=== PATIENT | female | born 1950 | race Caucasian/White ===

== ENCOUNTER 2018-02-16 12:24 | Outpatient (CLI) | payer MEDICARE, SELFPAY ==
[2018-02-16 13:24] LABS: ALT 21 U/L (12-78); AST 15 U/L (15-37); Albumin 3.9 g/dL (3.4-5.0); Alkaline Phosphatase 111 U/L (46-116); Anion Gap 8.3 mmol/L (3-11); BUN 17 mg/dL (7-18); Bilirubin, Total 0.4 mg/dL (0.2-1.0); CO2 30.7 mmol/L (21.0-32.0); CREATININE 0.59 mg/dL (0.55-1.02); Calcium 9.2 mg/dL (8.5-10.1); Chloride 105 mmol/L (98-107); Glucose 80 mg/dL (70-100); Potassium 4.5 mmol/L (3.5-5.1); Sodium 144 mmol/L (136-145)
== END 2018-02-16 12:25 ==
DX: M06.9 Rheumatoid arthritis, unspecified (principal); M21.949 Unspecified acquired deformity of hand, unspecified hand; M21.969 Unspecified acquired deformity of unspecified lower leg; M25.561 Pain in right knee
CPT/HCPCS: 36415; 80053

== ENCOUNTER 2018-02-21 01:51 | Outpatient (CLI) | payer MEDICARE, SELFPAY ==
--- NOTE | 2018-02-21 11:50 | DI.REPORT_ITS ---
SYMPTOMS/DIAGNOSIS: SCREENING, Z12.31 MAMMOGRAM: Mammograms were interpreted according to the usual protocol including computer analysis with CAD system, tomosynthesis and C view imaging. Comparison is made with exams from 2009 through 2016. The breasts are composed of scattered fibroglandular densities, breast density Category B. There are no suspicious masses or suspicious microcalcifications. There has been no significant change. IMPRESSION: Category I B, negative mammogram. Routine screening is recommended. [facility] ASSESSMENT OF FINDINGS: Negative. Category 1. Patient will receive a letter notifying them of these results. BI-RADS category B. There are scattered areas of fibroglandular density.
== END 2018-02-21 01:52 ==
DX: Z12.31 Encounter for screening mammogram for malignant neoplasm of breast (principal)
CPT/HCPCS: 77063; 77067

== ENCOUNTER 2019-02-22 10:08 | Outpatient (CLI) | payer MEDICARE, SELFPAY ==
[2019-02-22 13:09] LABS: ALT 21 U/L (12-78); AST 14 U/L (15-37); Albumin 3.5 g/dL (3.4-5.0); Alkaline Phosphatase 100 U/L (46-116); Anion Gap 9.1 mmol/L (3-11); BUN 18 mg/dL (7-18); Bilirubin, Total 0.3 mg/dL (0.2-1.0); CO2 29.9 mmol/L (21.0-32.0); CREATININE 0.56 mg/dL (0.55-1.02); Calcium 9.1 mg/dL (8.5-10.1); Chloride 106 mmol/L (98-107); Glucose 87 mg/dL (70-100); Potassium 4.9 mmol/L (3.5-5.1); Sodium 145 mmol/L (136-145)
== END 2019-02-22 10:28 ==
DX: M06.9 Rheumatoid arthritis, unspecified (principal)
CPT/HCPCS: 36415; 80053

== ENCOUNTER 2020-03-06 17:16 | Outpatient (REF) | payer MEDICARE, SELFPAY ==
[2020-03-06 16:53] LABS: ALT 20 U/L (14-59); AST 16 U/L (15-37); Albumin 3.4 g/dL (3.4-5.0); Alkaline Phosphatase 95 U/L (46-116); Anion Gap 4.5 mmol/L (3-11); BUN 14 mg/dL (7-18); Bilirubin, Total 0.3 mg/dL (0.2-1.0); CO2 30.5 mmol/L (21.0-32.0); CREATININE 0.48 mg/dL (0.55-1.02); Calcium 8.6 mg/dL (8.5-10.1); Chloride 110 mmol/L (98-107); Cholesterol 189 mg/dL (<200); Glucose 88 mg/dL (74-106); HDL Cholesterol 84 mg/dL (40-60); Potassium 4.3 mmol/L (3.5-5.1); Sodium 145 mmol/L (136-145); Total Protein 6.6 g/dL (6.4-8.2)
[2020-03-06 16:54] LABS: Triglyceride < 25 mg/dL (<150)
[2020-03-06 17:26] LABS: LDL CHOLESTEROL 94 mg/dL (<100)
== END 2020-03-06 17:36 ==
LOC: LBN 17:16
DX: E03.9 Hypothyroidism, unspecified (principal); L84 Corns and callosities; M06.9 Rheumatoid arthritis, unspecified; M21.969 Unspecified acquired deformity of unspecified lower leg; Z13.220 Encounter for screening for lipoid disorders
CPT/HCPCS: 80053; 80061; 83721

== ENCOUNTER 2020-03-14 04:04 | Outpatient (CLI) | payer MEDICARE, SELFPAY ==
--- NOTE | 2020-03-14 08:45 | DI.MAMMO_ITS ---
EXAM: MAMMO SCREENING CLINICAL HISTORY: screening,Z12.39 TECHNIQUE: Mammograms were interpreted according to the usual protocol including computer analysis w [employer] CAD system, tomosynthesis and C-view imaging. COMPARISON: 2010 through 2017 FINDINGS: The breasts are composed of heterogeneously dense fibroglandular densities, Breast Density category C . No suspicious masses or suspicious microcalcifications are seen. No skin thickening or abnormal axillary lymph nodes are seen. There has been no significant change from prior exams. IMPRESSION: BI-RADS Category 1: Negative mammogram Yearly screening mammography is recommended. Breast Density - Category C, heterogeneously dense tissue which decreases the sensitivity of the mamm ogram. The mammogram demonstrates the patient's breast tissue is dense. Dense breast tissue is very common a nd is not abnormal but dense breast tissue can make it harder to find cancer on a mammogram. Also, de nse breast tissue may increase breast cancer risk. This information about the result of the mammogram report was provided to the patient to raise their awareness. Use this report when you speak with the patient about their risks for breast cancer, which includes their family history. At that time, you may recommend additional screening tests (Ultrasound or MRI) as they might be useful based on their r isk. A negative radiographic report should not delay biopsy if a dominant or clinically suspicious mass is present. Up to ten percent of cancers are not identified on mammography. A negative report may reinforce clinical impression. Adenosis and dense breasts may obscure an underlying neoplasm. False positive reports average 6 to 10%.
== END 2020-03-14 04:24 ==
DX: Z12.31 Encounter for screening mammogram for malignant neoplasm of breast (principal); R92.2 Inconclusive mammogram
CPT/HCPCS: 77063; 77067

== ENCOUNTER 2021-03-19 03:06 | Outpatient (CLI) | payer MEDICARE, SELFPAY ==
[2021-03-19 10:26] LABS: ALT 22 U/L (14-59); AST 19 U/L (15-37); Albumin 3.5 g/dL (3.4-5.0); Alkaline Phosphatase 99 U/L (46-116); Anion Gap 4.7 mmol/L (3-11); BUN 19 mg/dL (7-18); Bilirubin, Total 0.4 mg/dL (0.2-1.0); CO2 31.3 mmol/L (21.0-32.0); CREATININE 0.6 mg/dL (0.55-1.02); Calcium 8.9 mg/dL (8.5-10.1); Chloride 109 mmol/L (98-107); Glucose 87 mg/dL (74-106); Potassium 5.5 mmol/L (3.5-5.1); Sodium 145 mmol/L (136-145); Total Protein 6.7 g/dL (6.4-8.2)
== END 2021-03-19 03:07 | disposition home or self-care (01) ==
LOC: LBO 03:06
DX: M06.9 Rheumatoid arthritis, unspecified (principal)
CPT/HCPCS: 36415; 80053

== ENCOUNTER 2022-03-22 13:10 | Outpatient (CLI) | payer MEDICARE, SELFPAY ==
--- NOTE | 2022-03-22 11:15 | DI.RAD_ITS ---
Exam(s) XR STANDING ALIGNMENT XR KNEE RT 1V EXAM: XR STANDING ALIGNMENT CLINICAL HISTORY: preop. TECHNIQUE: 2D digital imaging was performed. Standing AP views were performed from the pelvis throu gh the ankles. Single lateral view of the right knee COMPARISON: CR XR KNEE RT 1V from 03/22/2022 FINDINGS: BONES: No acute fracture is present. No bony destructive lesion is seen. The left femoral head projec ts 14 millimeters superior to the right. JOINTS: Knees: Severe degenerative changes of the right knee, greater in the lateral femoral tibial j oint space and prominent periarticular spurring. There is valgus angulation. Mild degenerative figueroa ges left knee. The ankle joints show mild narrowing. The hip joints are unremarkable. SOFT TISSUE: Normal. IMPRESSION: Severe degenerative changes of the right knee. Leg length discrepancy. DATA REPOSITORY: RADIATION DOSE DELIVERED:
== END 2022-03-22 13:11 | disposition home or self-care (01) ==
LOC: DIORS 13:10
PROVIDERS: Visit Provider Physician Assistant Surgical
DX: M17.11 Unilateral primary osteoarthritis, right knee (principal)
CPT/HCPCS: 99203; 73560; 77073

== ENCOUNTER 2022-04-29 03:58 | Outpatient (CLI) | payer MEDICARE, SELFPAY ==
[2022-04-29 14:02] LABS: HCT 36.9 % (36.0-46.0); HGB 11.8 g/dL (11.2-15.7); MCH 29.1 pg (27.0-33.0); MCV 91 fL (80-95); Platelet Count 283 10^3/uL (130-400); RBC 4.06 10^6/uL (3.93-5.22); RDW 13.3 % (11.7-14.6); RDW-SD 44.8 fL; WBC 6.45 10^3/uL (4.4-10.8)
[2022-04-29 14:31] LABS: Anion Gap 5.5 mmol/L (3-11); BUN 27 mg/dL (7-18); CO2 29.5 mmol/L (21.0-32.0); CREATININE 0.7 mg/dL (0.55-1.02); Chloride 106 mmol/L (98-107); Estimated GFR 92.41 (mL/min/1.73m2); Glucose 101 mg/dL (74-106); Potassium 4.8 mmol/L (3.5-5.1); Sodium 141 mmol/L (136-145)
== END 2022-04-29 03:59 | disposition home or self-care (01) ==
LOC: LBO 03:58
PROVIDERS: Visit Provider Student in an Organized Health Care Education/Training Program
DX: M17.11 Unilateral primary osteoarthritis, right knee (principal); Z01.818 Encounter for other preprocedural examination
CPT/HCPCS: 36415; 80048; 85027

== ENCOUNTER → 2022-05-03 01:48 | Outpatient (CLI) | payer MEDICARE, SELFPAY ==
--- NOTE | 2022-05-03 07:30 | DI.MAMMO_ITS ---
Exam(s) MAMMO SCREENING EXAM: MAMMO SCREENING CLINICAL HISTORY: screening,Z12.39 TECHNIQUE: Mammograms were interpreted according to the usual protocol including computer analysis w [employer] CAD system, tomosynthesis and C-view imaging. COMPARISON: 2013 through 2019 FINDINGS: The breasts are composed of heterogeneously dense fibroglandular densities, Breast Density category C . No suspicious masses or suspicious microcalcifications are seen. No skin thickening or abnormal axillary lymph nodes are seen. There has been no significant change from prior exams. IMPRESSION: BI-RADS Category 1, Negative mammogram. Yearly screening mammography is recommended. Breast Density Category C, heterogeneously Dense. The mammogram demonstrates the patient's breast tissue is dense. Dense breast tissue is very common a nd is not abnormal but dense breast tissue can make it harder to find cancer on a mammogram. Also, de nse breast tissue may increase breast cancer risk. This information about the result of the mammogram report was provided to the patient to raise their awareness. Use this report when you speak with the patient about their risks for breast cancer, which includes their family history. At that time, you may recommend additional screening tests (Ultrasound or MRI) as they might be useful based on their r isk. A negative radiographic report should not delay biopsy if a dominant or clinically suspicious mass is present. Up to ten percent of cancers are not identified on mammography. A negative report may reinforce clinical impression. Adenosis and dense breasts may obscure an underlying neoplasm. False positive reports average 6 to 10%.
== END ==
PROVIDERS: Visit Provider Nurse Practitioner Family
DX: Z12.31 Encounter for screening mammogram for malignant neoplasm of breast (principal)
CPT/HCPCS: 77063; 77067

== ENCOUNTER 2022-05-04 09:47 | Day surgery (SDC) | payer MEDICARE, SELFPAY ==
[2022-05-04] VITALS (10 sets, daily range): BP systolic 114–191; BP diastolic 58–87; PULSE 54–67; RESP 13–20; TEMP 36–36.7; O2SAT 98–100; BMI 21.0
--- NOTE | 2022-05-04 06:42 | PDOC.DSDIS_ITS ---
Date of service: 05/04/22 Time of Service: 15:54 Discharge Plan Disposition Patient Disposition: HOME Condition: Good Discharge Details Reason For Visit: Right TKA Attending Provider: Remy Boland Primary Care Provider: Chemo Plummer Home Meds and New Rx's Prescriptions: New celecoxib [Celebrex] 200 mg capsule 200 mg PO BID Qty: 60 0RF aspirin 81 mg tablet,delayed release (DR/EC) 81 mg PO BID Qty: 60 0RF pantoprazole [Protonix] 40 mg tablet,delayed release (DR/EC) 40 mg PO DAILY Qty: 30 0RF dexamethasone 4 mg tablet 4 mg PO DAILY Qty: 2 0RF gabapentin 300 mg capsule 300 mg PO QHS Qty: 14 0RF acetaminophen 500 mg capsule 1,000 mg PO Q8H PRN PRNQty: 90 0RF oxycodone 5 mg tablet 5 mg PO Q4H PRNQty: 18 0RF Continued Fish Oil 500 mg capsule See Rx Instructions .ROUTE .COMPLEX Rx Instructions: 2 caps PO Daily; Turmeric 117 mg capsule See Rx Instructions .ROUTE .COMPLEX Rx Instructions: Takes 2 caps PO daily; Discontinued naproxen sodium 220 mg tablet 440 mg PO DAILY Discharge Instructions Instructions: Total Knee Discharge Instructions Additional Instructions: Total Knee Discharge Instructions Activity: The most important activity is to walk and to work on gentle motion (both flexion and extension). You should try to take short walks a few times a day. It is important that when resting you work on keeping the knee straight. Avoid putting a pillow behind the knee as this will encourage flexion. Work on range of motion exercises as provided by Physical Therapy. - Start outpatient physical therapy within 2 weeks. - You should wear the FATOU hose on both legs for 2 weeks. You may remove these at night. You may also use any compression sock in place of the FATOU hose. - Utilize [employer] to review exercises, see videos on exercises and obtain basic information pertaining to your surgery and your recovery. Dressing: Remove the Siddhartha wrap by 2 days after your surgery and put on the FATOU stocking given to you from the hospital. Keep the surgical dressing (underneath the SIDDHARTHA wrap) in place for at least one week. After the first week it may be removed and replaced with light gauze and tape or nothing. The wound and dressing may get wet after 3 days but avoid soaking the dressing or otherwise it will need to be changed. Many people prefer covering the dressing with cling wrap (saran wrap) to minimize it from getting soaked. If it gets wet, just pat dry. If it starts to peel off then it will need to be changed. Medications: - You should take Tylenol and anti-inflammatory Celebrex as your primary pain control medications. If the Celebrex is too expensive or not covered, please call the office for another alternative (Advil/Ibuprofen or Naproxen/Aleve) - You have been prescribed a stronger pain medication Oxycodone for breakthrough pain, take as needed as prescribed. - You have also been prescribed a stomach acid reduction agent Pantoprozole to help reduce stomach acid and reflux. - You have been prescribed Gabapentin to take at night for restlessness and nerve pain. - You will be taking Aspirin 81mg twice a day for DVT prevention unless instructed otherwise. - You have also been prescribed Decadron to take to control post-operative nause a and pain. You will start this tomorrow. - If you have constipation you should take Colace or Miralax (both isue-euj-rheyada). It takes most people 3-4 days to have a bowel movement. Follow-up: 2 weeks If you have any acute concerns or questions, please do not hesitate to contact the office at [phone]. You may contact Dr. Boland with any questions after hours through the hospital at [phone] or on his cell phone at [phone]. Referrals: Remy Boland MD [ [facility] STAFF PHYSICIAN] - Equipment/Supplies: Walker Activity:: Activity as Tolerated Diet:: As Tolerated Discharge Orders Discharge Orders: Discharge Order (Routine); Ordered 05/04/22 Ordered By: Remy Boland DS: Diagnosis Discharge Diagnosis (1) Osteoarthritis of right knee: Status: Acute
[2022-05-04] MEDS: Lactated Ringers 1,000 ML 80 ML IV (10:23)
[2022-05-04] MEDS: Acetaminophen 500 MG TAB 1000 MG PO (10:33)
[2022-05-04] MEDS: Gabapentin 300 MG CAP PO (10:33)
[2022-05-04] MEDS: Celecoxib 200 MG CAP 400 MG PO (10:33)
--- NOTE | 2022-05-04 11:12 | W.ANESPRE ---
General Info Date of Service Date Performed: 05/04/22 Height: 5 ft 4 in Weight: 55.6 kg Body Mass Index (BMI): 21.0 Surgical Procedure: Operation Date: 05/04/22 13:25 Proposed Procedure Side Surgeon p Knee Total Arthroplasty w/OrthoAlign, Cemented PS Right Remy Boland MD Meds Allergies and Home Medications Allergies Allergy/AdvReac Type Severity Reaction Status Date / Time No Known Allergies Allergy Verified 04/10/22 09:21 Home Medication Medication Instructions Recorded Fish Oil See Rx Instructions .Route .COMPLEX 03/06/20 Turmeric See Rx Instructions .Route .COMPLEX 03/06/20 acetaminophen 500 mg capsule 1,000 mg PO Q8H PRN PRN #90 caps 05/04/22 aspirin 81 mg tablet,delayed 81 mg PO BID #60 tabs 05/04/22 release celecoxib 200 mg capsule (Celebrex) 200 mg PO BID #60 caps 05/04/22 dexamethasone 4 mg tablet 4 mg PO DAILY #2 tabs 05/04/22 gabapentin 300 mg capsule 300 mg PO QHS #14 caps 05/04/22 oxycodone 5 mg tablet 5 mg PO Q4H PRN #18 tabs 05/04/22 pantoprazole 40 mg tablet,delayed 40 mg PO DAILY #30 tabs 05/04/22 release (Protonix) Current Visit Medications: Current Medications Generic Name Dose Route Start Last Admin Trade Name Freq PRN Reason Stop Dose Admin Acetaminophen 1,000 mg 05/04/22 06:00 05/04/22 10:33 Acetaminophen 500 Mg Tab PO 05/04/22 16:00 1,000 mg PREOP PAM Administration Acetaminophen 1,000 mg 05/04/22 14:00 Acetaminophen 500 Mg Tab PO TID PAM Aspirin 81 mg 05/04/22 20:00 Aspirin E.C. 81 Mg Tabec PO BID PAM Celecoxib 400 mg 05/04/22 06:00 05/04/22 10:33 Celecoxib 200 Mg Cap PO 05/04/22 16:00 400 mg PREOP PAM Administration Celecoxib 200 mg 05/04/22 20:00 Celecoxib 200 Mg Cap PO BID PAM Docusate Sodium 100 mg 05/04/22 06:40 Docusate Sodium 100 Mg Cap PO BID PRN PRN Constipation Gabapentin 300 mg 05/04/22 06:00 05/04/22 10:33 Gabapentin 300 Mg Cap PO 05/04/22 16:00 300 mg PREOP PAM Administration Gabapentin 300 mg 05/04/22 22:00 Gabapentin 300 Mg Cap PO HS PAM Hydromorphone HCl 0.5 mg 05/04/22 06:40 Hydromorphone 2 Mg/Ml Syr IVP Q2H PRN PRN Tranexamic Acid 1,000 mg/ 60 mls @ 360 mls/hr 05/04/22 06:00 Sodium Chloride IVPB 05/04/22 16:00 PREOP PAM Ringer's Solution 1,000 mls @ 80 mls/hr 05/04/22 06:00 05/04/22 10:23 IV 05/04/22 23:59 80 mls/hr INFUSION PAM Administration Cefazolin Sodium/Dextrose 2 gm in 50 mls @ 100 mls/hr 05/04/22 06:00 Ancef Duplex IVPB 05/04/22 23:59 PREOP PAM Cefazolin Sodium/Dextrose 1 gm in 50 mls @ 100 mls/hr 05/04/22 18:00 Ancef Duplex IVPB 05/05/22 10:29 Q8H PAM IV Miscellaneous Supplies 1 each 05/04/22 06:00 Iv Access IV 05/04/22 23:59 DIRECTED PAM Ondansetron HCl 4 mg 05/04/22 06:40 Ondansetron 4 Mg/2 Ml Vial IVP Q6H PRN PRN Nausea Oxycodone HCl 0 mg 05/04/22 06:40 Oxycodone 5 Mg Tab PO Q3H PRN PRN Pain Pantoprazole Sodium 40 mg 05/05/22 07:30 Pantoprazole 40 Mg Tabcr PO DAILY@0730 PAM Sodium Chloride 0 ml 05/04/22 06:00 Normal Saline Flush 10 Ml Syr IV 05/04/22 23:59 PRN PRN Sodium Chloride 0 ml 05/04/22 06:00 Normal Saline 10 Ml Vial IJ 05/04/22 23:59 DIRECTED PRN Sterile Water 0 ml 05/04/22 06:00 Water,Injection,Sterile 10 Ml Vial IJ 05/04/22 23:59 DIRECTED PRN PFSH Active Problems Active Problems: Problem Status Onset Code Osteoarthritis of right knee M17.11 Colon cancer screening Z12.11 Hypertrophic toenail L60.2 Foot callus L84 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 History of arthroplasty Z98.890 History of surgical removal of lesion Z98.890, Z87.2 Abnormal mammography 12/01/06 R92.8 Rheumatoid arthritis M06.9 Status post breast lumpectomy Z98.890 Medical History Medical History Corneal abrasion Hand deformities Immunization due Knee deformity, acquired right severe DJD Neck discomfort (02/16/18) Surgical History Surgical History Arthroplasty (~1979) PIP joints; right hand arthroplasty-early Breast, Lumpectomy (~1995) LEFT BREAST PROCEDURES EXCISION LESION TONGUE, 12/09 SQUAMOUS PAPILOMA Tobacco Smoking/Tobacco Use Status: Never Passive smoking exposure: Yes Second hand exposure: Yes Alcohol Alcohol Intake: never Substance Use Substance use: Never Counseling provided: none Vital Signs and Lab Results Vital Signs Most Recent Vital Signs in EMR: Most Recent Vital Signs Temp Pulse Resp BP Pulse Ox 36.7 C 63 18 178/79 H 98 05/04/22 09:56 05/04/22 09:56 05/04/22 09:56 05/04/22 09:56 05/04/22 09:56 Lab Results Blood Type / Crossmatch: No Data to Display Complete Blood Count: White Blood Count 6.45 10^3/uL (4.4-10.8) 04/29/22 13:55 Red Blood Count 4.06 10^6/uL (3.93-5.22) 04/29/22 13:55 Hemoglobin 11.8 g/dL (11.2-15.7) 04/29/22 13:55 Hematocrit 36.9 % (36.0-46.0) 04/29/22 13:55 Platelet Count 283 10^3/uL (130-400) 04/29/22 13:55 Complete Metabolic Panel: Sodium 141 mmol/L (136-145) 04/29/22 13:55 Potassium 4.8 mmol/L (3.5-5.1) 04/29/22 13:55 Chloride 106 mmol/L (98-107) 04/29/22 13:55 Carbon Dioxide 29.5 mmol/L (21.0-32.0) 04/29/22 13:55 BUN 27 mg/dL (7-18) H 04/29/22 13:55 Creatinine 0.7 mg/dL (0.55-1.02) 04/29/22 13:55 Est GFR (CKD-EPI 2020) 92.41 (mL/min/1.73m2) 04/29/22 13:55 Calcium 9.0 mg/dL (8.5-10.1) 04/29/22 13:55 Glucose 101 mg/dL (74-106) 04/29/22 13:55 Liver Function Panel: No Data to Display Coagulation Panel: No Data to Display Cardiac Panel: No Data to Display Arterial Blood Gas: No Data to Display Venous Blood Gas: No Data to Display Pancreas Panel: No Data to Display Thyroid Panel: No Data to Display Infectious Disease: No Data to Display Blood Cultures: No Data to Display Toxicology Panel: No Data to Display Anesthesia Assessment and Plan Anesthesia History Personal History: No History of Anesthesia Complications Family History: No Family History of Anesthesia Complications Exercise Tolerance Exercise Tolerance: Metabolic Equivalents>4 Pertinent Negatives Pertinent Negatives: No Symptoms of GERD, No Major Cardiovascular Symptoms or Complaints, No Major Pulmonary Symptoms or Complaints and No History of CVA/TIA Cardiac & Pulmonary Exam Cardiac Exam: Normal S1/S2 Heart Sounds Pulmonary Exam: Clear Bilateral Breath Sounds Implantable Cardiac Device Does patient have a Pacemaker or an ICD?: No Airway Exam Known Difficult Airway: No Mallampati Class: 2 Mouth Opening: Normal (> 3cm) Thyromental Distance: Greater than 3 cm Neck Range of Motion: Full ROM Neck Circumference: Normal Teeth Condition: Normal Dentition ASA Classification ASA Score: ASA 2 Emergency Case?: No NPO Status NPO Status: NPO Clears >2 hours, Solids >8 hours Anesthesia Plan Resuscitation Status: Full Code Anesthesia Technique: Spinal Anesthesia Airway Planned: Natural Airway Monitors Used: Standard Monitors
[2022-05-04] MEDS: ceFAZolin 2 GM/50 ML BAG IVPB (11:43)
--- NOTE | 2022-05-04 12:22 | W.ANESNERVE ---
Nerve Block Single Injection Procedure Date and Time Date Performed: 05/04/22 Procedure Start: 11:38 Location Where Procedure Performed Procedure Location: Day Surgery Unit Reason Performed: Postoperative Analgesia Requesting Provider: Remy Boland Timeout Performed Timeout Performed: Yes Monitoring Used ECG, Blood Pressure, SpO2 and See EMR for corresponding vital signs Sterility Sterility: Hand Hygiene, Surgical Cap, Surgical Mask, Sterile Gloves, Sterile Drape/Sheet and Chlorhexidine Sedation Given During Procedure Sedation Given (Indicate Dose Given): No Sedation given Patient Mental Status Patient Mental Status: Awake Nerve Block 1st Nerve Block: Laterality: Right Block Type: Adductor Canal Needle / Catheter Used: 100mm SonoPlex II Local Anesthetic Bolus (Indicate Dose Given): Lidocaine used for local infiltration of skin, Injected in 3-5ml increments after negative blood aspiration and Bupivacaine 0.25% Dose:: 15 ml Additives (Indicate Dose Given): None Ultrasound: Sterile probe cover and gel used Ultrasound Image Saved?: Yes Nerve Stimulator: Not Used Paresthesia: None Procedure Tolerated: No Complications and Patient tolerated well Procedure Outcome: Successful Performed By: Sylvie Aguillon
--- NOTE | 2022-05-05 06:17 | W.PM.OP ---
Date of service: 05/04/22 Time of Service: 13:20 Operative Note Operative Note DATE OF PROCEDURE: 05/04/22 PRE-OP DIAGNOSIS: Right Knee Arthritis with Valgus Deformity POST-OP DIAGNOSIS: same PROCEDURE: RIGHT Total Knee Arthroplasty with Intraoperative Navigation SURGEON: Remy Boland [employer]IMNEY [employer]STRU[employer] SUPERVISOR: Marci Luevano ANESTHESIA TYPE: Spinal Refer to Anesthesia Record ESTIMATED BLOOD LOSS: 150 PATHOLOGY: none sent COMPLICATIONS: None Patient was transported to: PACU Patient's condition: stable Implants: 1. Depuy Attune Posterior Stabilized Femoral Component, Size 5 2. Depuy Attune Rotating Platform Tibial Component, Size 6 3. Depuy Attune 5x8 RP/PS Poly 4. Depuy Attune Patellar Component, Size 35 Indications: I have seen Miri in clinic for symptoms of knee arthritis, confirmed with radiographic findings. She has exhausted nonoperative methods and was having significant limitations in daily function and desired better function and less pain. I discussed the technical details of a knee replacement. I explained the risks of the procedure to include, but not limited to, bleeding, infection, pain, stiffness, fracture, damage to nerves and vessels, damage to muscles and tendons, loosening, need for repeat procedure, blood clot and cardiopulmonary demise. Despite these risks, Miri elected to proceed. Findings: There was significant signs of arthritis throughout the knee involving all 3 compartments with notable deformity of the lateral tibia and femur and overwhelming synovitis. Procedure Description: Miri was greeted in the preoperative holding area where the correct side was identified and marked. The consent was reviewed with the patient and signed. The history and physical was updated. All questions were answered. Preoperative mediacations were administered: Acetaminophen 1000mg, Celebrex 400mg, and Gabapentin 300mg. An adductor canal block was then administered by the anesthesia team in the PACU. She was taken back to the operating room. A spinal anesthestic was then administered. The patient was placed into the supine position on the operating room table. A nonsterile tourniquet was placed high onto the leg but only used for cementing. Posts were placed for positioning during the procedure. All bony prominences were well padded. Prophylactic antibiotics in the form of Cefazolin were administered. 1g of Tranxemic Acid was given intravenously within 30 minutes of incision. The right leg was then prepped with Chloraprep and draped in a standard fashion with impervious stockinette and extremity drape with Iodine impregnated skin protection. A timeout to confirm correct identity, side and site, procedure, allergies, anesthesia, and medical concerns was performed. With the knee in some flexion, a midline incision was made overlying the knee. Full thickness skin flaps were raised once the extensor mechanism was encountered. These were raised medially and laterally. Any bleeding was controlled with electrocautery. Once the extensor mechanism was fully exposed, a medial parapatellar arthrotomy was performed in a flexed position. All bleeding from the arthrotomy and the geniculate arteries was coagulated. A medial subperiosteal peel was performed with electrocautery to the midcoronal plane. The fat pad was removed while keeping the patellar tendon protected. The anterior distal femur synovium was removed for later visualization. The ACL and PCL were resected and the anterior horn of the lateral meniscus was transected. The knee was then flexed with the patella everted. Large osteophytes from the tibia were removed. Large osteophytes from the femur were removed. An aggressive synovectomy was then performed due to the chronic villonodular synovitis throughout the knee. Tissues were resected from the periphery of the lateral tibia including a large portion of the IT band. A single starting pin was then placed 1cm anterior to the PCL insertion and the notch in the direction of the femoral head. The OrthoAlign device was applied over the pin. It was oriented to be in line with the epicondylar axis and the trochlear groove. It was then pinned into place. The navigation computer was then turned on and calibrated. The distal femur cut was set at 0 degrees varus/valgus and 2.5 degrees flexion. The distal femur cutting guide then was positioned for a 9mm cut. The distal femur was cut with an oscillating saw while protecting the soft tissues. The tibia was then addressed. The OrthoAlign device was placed over the tibial tubercle and medial tibia and secured into position. Once again, OrthoAlign was calibrated and then set for a 0 degree varus/valgus cut and 4 degrees of posterior slope. With this locked into position, the cut thickness stylus was used to assess cut thickness. The lateral side, most involved side, was set for a 2mm cut from its lowest spot. This was then held in position and pinned into place with 2 additional pins and a cross pin for stability. The medial and lateral collateral ligaments were protected and the cut was performed. With this completed, it was assessed and noted to be of appropriate dimensions. The guide and OrthoAlign was removed. A spacer block was inserted and the knee was brought into extension. The 6mm spacer block provided full extension, without hyperextension and with stability of both the medial and lateral collateral ligaments was assessed. The pins from the femur and the tibia were then removed. The distal femur was then sized. The anterior stylus was placed onto the lateral ridge of the anterior femur. This indicated a size 5 femur. The external rotation of the guide was adjusted to 3 degrees to match the epicondylar axis, perpendicular to Hutchinson?s line. The 4-in-1 cutting guide was the placed. The posterior medial femur cut was evaluated and appeared of good thickness. The spacer block was inserted underneath the cutting guide and stability was confirmed in 90 degrees of flexion. An xi wing was used to confirm appropriate position of the anterior cut to avoid notching. This cutting guide was ensured to be flush on the cut surface and then pinned into place with headed pins. While protecting the soft tissues, quad tendon, and collateral ligaments, the anterior and posterior cuts were performed with a saw. The central two pins were removed and the posterior and anterior chamfers were cut next. The notch-cutting guide was placed. This was pinned to lateralize the femoral component as much as possible while keeping it flush on the cut surface. This was then pinned into position. A reciprocating saw was used to make the notch cut. A rasp smoothed the cut surfaces. A trial posterior stabilized femoral component was then inserted, impacted down to the cut surfaces, and the lug holes were drilled. A provisional trial tibial component was placed and the knee was brought through range of motion. There was noted to be excellent extension and flexion. The polyethylene was trialed until there was good flexion and extension with excellent stability to the medial and lateral collaterals. The patella was tracking without thumbs. The tibial cut surface was fully exposed. The medial and lateral menisci were removed. The tibia was then sized as a 6. The tibia had been previously marked during trialing to correspond to the center of the tibial component to help with rotation. The trial was aligned to this abdiel, approximately rotated to the medial 1/3rd of the tibial tubercle. The trial was pinned into place. The tibia was prepared with a reamer and a keel punch. The knee was then brought into extension and the patella was measured as 23mm. Using the patellar clamp and cut guide, this was resected to a flat surface with at least 13mm of thickness remaining. The size 35 patella fit the best. This was oriented and then clamped into position. The lugs were drilled. The trial components were removed. The final components, except for the polyethylene were opened on the back table. The periosteal and capsular tissues, especially posteriorly, around the knee were then systematically injected with a periarticular cocktail consisting of 246mg of Ropivacaine, 0.5mg of Epinephrine, 0.08mg of Clonidine, and 30mg of Ketorolac, diluted to 100cc. The tourniquet was then inflated to 275mmHg. The knee was thoroughly irrigated with a pulse lavage and dried. On the back table, with the implants opened, the cement was mixed. 2 batches of medium viscosity cement were prepared with vacuum assistance. After the cement was ready a small amount was placed on to the back side of the tibial component at the keel. A small amount was placed onto the posterior flange of the femur. Cement was manual pressurized and impregnated into the cut surface of the tibia. The tibial component was then inserted into the cut surface and impacted into position. Excess cement was removed and the component was reimpacted. Again, excess cement was removed and our attention was then turned to the femur. The femoral cut surface was once again dried and cement was manually impacted into the cut surface. The femoral component was lined with the lug holes and impacted. Excess cement was removed. It was ensured to be down against the cut surface. The trial polyethylene was then inserted and the leg was brought out into full extension for the duration of the cement curing process, approximately 18min. Cement was lastly manually impacted into the cut surface of the patella and the patellar button was clamped into position and held. During this process attention was turned to the gutters of the knee and for all interfaces for any excess cement. The knee was thoroughly irrigated with Surgiphor betadine solution. It was allowed to sit in the wound for 3 minutes before being irrigated out with saline. After the cement had finally cured, approximately 18min, the clamp was removed from the patella and the knee was taken through range of motion. A size 8mm polyethylene component provided the best range of motion and stability with less than 2mm gapping with medial and lateral stress and full extension without significant hyperextension. The patella was tracking with a no-thumbs technique. The trial poly was removed and once again the knee was checked for any loose, excess, or errant cement. The poly component was then inserted and impacted into position after cleaning and drying the tibial tray. The capsule was then reapproximated with a No. 1 Vicryl at multiple locations. The capsule was finally closed with a No. 2 Stratafix, barbed suture. The tourniquet was then released and the arthrotomy appeared watertight without significant bleeding. The second dosing of 1g TXA was started. Deep tissues were then reapproximated with 0 Vicryl and 2-0 Monocryl. The skin was closed with a running 3-0 Monocryl in a subcuticular fashion. This was reinforced with skin glue. A Mepilex silver dressing was applied along with a [id number] JW wrap. A CryoCuff was applied. Miri was transferred to the hospital bed without difficulty an suffering no apparent complication. Miri has a good prognosis. Physical therapy will start today and without restrictions, weight-bearing as tolerated. Aspirin 81mg BID will be used for DVT prophylaxis.
--- NOTE | 2022-05-05 14:34 | W.ANESPOSTOP ---
Postoperative Evaluation Date, Time and Location Date Performed: 05/05/22 Time Performed: 12:35 Patient Location: Day Surgery Unit Vital Signs Most Recent Imported Vital Signs: Most Recent Vital Signs Temp Pulse Resp BP Pulse Ox 36.5 C 59 L 18 125/74 100 05/04/22 16:15 05/04/22 16:15 05/04/22 16:15 05/04/22 16:15 05/04/22 16:15 Pain Score Most Recent Pain Score: Most Recent Pain Score Pain Level 0 05/04/22 16:15 Assessment Mental Status: Awake (Alert & Oriented to Patient Baseline) Airway and Respiratory Function: Patent airway with normal (patient baseline) respiratory exam Cardiovascular Function: Hemodynamically Stable Hydration Status: Adequately Hydrated Nausea & Vomiting: No Nausea or Vomiting Pain: Pain is tolerable per patient Peripheral Nerve Block: Regional nerve block not resolved at time of post operative discharge
== END 2022-05-04 16:20 | disposition home or self-care (01) ==
PROVIDERS: PCP Nurse Practitioner Family; Visit Provider Student in an Organized Health Care Education/Training Program
PROC: (CPT 27447; principal; 2022-05-04 13:15)
DX: M17.11 Unilateral primary osteoarthritis, right knee (principal)
CPT/HCPCS: 20985; 27447; C1776; 76942; 97161; J0690; J1100; J2250; J2405

== ENCOUNTER 2022-05-20 11:42 | Outpatient (CLI) | payer MEDICARE, SELFPAY ==
--- NOTE | 2022-05-20 10:45 | DI.RAD_ITS ---
Exam(s) XR KNEE RT 1V XR STANDING ALIGNMENT EXAM: XR STANDING ALIGNMENT CLINICAL HISTORY: 1ST POST OP R TKA TECHNIQUE: COMPARISON: CR XR STANDING ALIGNMENT from 03/22/2022 CR XR KNEE RT 1V from 05/20/2022 FINDINGS: AP standing alignment views of the lower extremities and lateral view of the right knee were obtained . There is a total knee joint replacement position on the right. The components appear well seated. There are severe degenerative changes of the joints of the left knee, predominantly involving lateral tibiofemoral joint. IMPRESSION: RADIATION DOSE DELIVERED: Total DLP
== END 2022-05-20 11:43 | disposition home or self-care (01) ==
LOC: DIORS 11:43
PROVIDERS: PCP Nurse Practitioner Family; Referring Provider Nurse Practitioner Family; Visit Provider Student in an Organized Health Care Education/Training Program
DX: Z96.651 Presence of right artificial knee joint (principal); Z47.1 Aftercare following joint replacement surgery
CPT/HCPCS: 73560; 77073

== ENCOUNTER → 2022-06-18 10:36 | Outpatient (BNVA) | payer MEDICARE, SELFPAY | PROVIDERS: PCP Nurse Practitioner Family; Referring Provider Nurse Practitioner Family; Visit Provider Student in an Organized Health Care Education/Training Program | DX: Z47.1 Aftercare following joint replacement surgery (principal); Z96.651 Presence of right artificial knee joint ==

== ENCOUNTER → 2022-07-09 10:42 | Outpatient (BNVA) | payer MEDICARE, SELFPAY | PROVIDERS: PCP Nurse Practitioner Family; Referring Provider Nurse Practitioner Family; Visit Provider Student in an Organized Health Care Education/Training Program | DX: Z47.1 Aftercare following joint replacement surgery (principal); Z96.651 Presence of right artificial knee joint; T84.82XA Fibrosis due to internal orthopedic prosthetic devices, implants and grafts, initial encounter ==

== ENCOUNTER 2022-07-21 10:02 | Day surgery (SDC) | payer MEDICARE, SELFPAY ==
[2022-07-21 10:27] VITALS: BP 185/86; PULSE 68; RESP 16; TEMP 36.4; O2SAT 100
--- NOTE | 2022-07-21 10:53 | PDOC.DSDIS_ITS ---
Date of service: 07/21/22 Time of Service: 10:56 Discharge Plan Disposition Patient Disposition: Home Condition: Good Discharge Details Reason For Visit: Arthrofibrosis of right TKA Attending Provider: Remy Boland Primary Care Provider: Chemo Plummer Home Meds and New Rx's Prescriptions: New acetaminophen 500 mg tablet 500 mg PO Q6H PRN (Reason: pain) Qty: 60 2RF ibuprofen 600 mg tablet 600 mg PO TID PRN (Reason: pain) Qty: 60 0RF Continued Fish Oil 500 mg capsule See Rx Instructions .ROUTE .COMPLEX Rx Instructions: 2 caps PO Daily; Turmeric 117 mg capsule See Rx Instructions .ROUTE .COMPLEX Rx Instructions: Takes 2 caps PO daily; cholecalciferol (vitamin D3) [Vitamin D3] 25 mcg (1,000 unit) Capsule 25 mcg PO DAILY Discontinued naproxen sodium [Aleve] 220 mg capsule 220 mg PO BID PRN acetaminophen 500 mg capsule 1,000 mg PO Q8H PRN PRNQty: 90 0RF Discharge Instructions Additional Instructions: Knee Manipulation Discharge Instructions Activity: You should begin moving as soon as possible. You may work on flexion but also equally maintain extension. You may bear weight as tolerated, using crutches only for support/comfort. You should apply ice to help with swelling and elevate when possible (especially in the first few days). Dressings: The knee dressing may come down after 48 hours. You may shower and get the wound wet at that time. You should keep the wounds covered with a bandaid until follow-up. Medications: - Rarely does this require any stronger pain medications. - Recommend to take up to 1000mg of Acetaminophen (Tylenol) and 600mg of Ibuprofen (Advil) every 8 hours as needed. These larger strength tablets were called in but you also may use [id number]. Follow-up: 7-10 days Referrals: Remy Boland MD [ [facility] STAFF PHYSICIAN] - Equipment/Supplies: Partial Weight Bearing Crutches Activity:: Elevate Remove Dressings/Wound Care:: 48 hours Shower/Bathe:: 48 hours Diet:: As Tolerated Discharge Orders Discharge Orders: Discharge Order (Routine); Ordered 07/21/22 Ordered By: Aylin Bradshaw
[2022-07-21] MEDS: Lactated Ringers 1,000 ML 80 ML IV (10:57)
--- NOTE | 2022-07-21 11:46 | W.ANESPRE ---
General Info Date of Service Date Performed: 07/21/22 Height: 5 ft 4 in Weight: 56.5 kg Body Mass Index (BMI): 21.4 Surgical Procedure: Operation Date: 07/21/22 13:10 Proposed Procedure Side Surgeon p Knee Manipulation of Knee Right Remy Boland MD Meds Allergies and Home Medications Allergies Allergy/AdvReac Type Severity Reaction Status Date / Time No Known Allergies Allergy Verified 07/21/22 10:33 Home Medication Medication Instructions Recorded Fish Oil See Rx Instructions .Route .COMPLEX 03/06/20 Turmeric See Rx Instructions .Route .COMPLEX 03/06/20 acetaminophen 500 mg tablet 500 mg PO Q6H PRN pain #60 tabs 07/21/22 cholecalciferol (vitamin D3) 25 25 mcg PO DAILY 07/21/22 mcg (1,000 unit) capsule (Vitamin D3) ibuprofen 600 mg tablet 600 mg PO TID PRN pain #60 tabs 07/21/22 Current Visit Medications: Current Medications Generic Name Dose Route Start Last Admin Trade Name Freq PRN Reason Stop Dose Admin Acetaminophen 650 mg 07/21/22 10:53 Acetaminophen 325 Mg Tab PO Q4H PRN PRN Hydrocodone Bitart/Acetaminophen 0 tab 07/21/22 10:53 Hydrocodone 5/Acetaminophen 325 Tab PO Q3H PRN PRN Pain Ringer's Solution 1,000 mls @ 80 mls/hr 07/21/22 06:00 07/21/22 10:57 IV 08/19/22 23:59 80 mls/hr INFUSION PAM Administration IV Miscellaneous Supplies 1 each 07/21/22 06:00 Iv Access IV 08/19/22 23:59 DIRECTED PAM Sodium Chloride 0 ml 07/21/22 06:00 Normal Saline Flush 10 Ml Syr IV 08/19/22 23:59 PRN PRN Sodium Chloride 0 ml 07/21/22 06:00 Normal Saline 10 Ml Vial IJ 08/19/22 23:59 DIRECTED PRN Sterile Water 0 ml 07/21/22 06:00 Water,Injection,Sterile 10 Ml Vial IJ 08/19/22 23:59 DIRECTED PRN PFSH Active Problems Active Problems: Problem Status Onset Code Arthrofibrosis of total knee replacement T84.82XA History of total right knee replacement 05/05/22 Z96.651 Colon cancer screening Z12.11 Hypertrophic toenail L60.2 Foot callus L84 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 History of arthroplasty Z98.890 History of surgical removal of lesion Z98.890, Z87.2 Abnormal mammography 12/01/06 R92.8 Rheumatoid arthritis M06.9 Status post breast lumpectomy Z98.890 Medical History Medical History Corneal abrasion Hand deformities Immunization due Knee deformity, acquired right severe DJD Neck discomfort (02/16/18) Medical History Comments:: 07/21/22 PT reports her BP is typically higher when she comes into hospital - white coat syndrome Surgical History Surgical History Arthroplasty (~1979) PIP joints; right hand arthroplasty-early Breast, Lumpectomy (~1995) LEFT BREAST PROCEDURES EXCISION LESION TONGUE, 12/09 SQUAMOUS PAPILOMA Tobacco Smoking/Tobacco Use Status: Never Passive smoking exposure: Yes Second hand exposure: Yes Alcohol Alcohol Intake: never Substance Use Substance use: Never Substance use type: does not use Counseling provided: none Vital Signs and Lab Results Vital Signs Most Recent Vital Signs in EMR: Most Recent Vital Signs Temp Pulse Resp BP Pulse Ox 36.4 C L 68 16 185/86 H 100 07/21/22 10:27 07/21/22 10:27 07/21/22 10:27 07/21/22 10:27 07/21/22 10:27 Lab Results Blood Type / Crossmatch: No Data to Display Complete Blood Count: No Data to Display Complete Metabolic Panel: No Data to Display Liver Function Panel: No Data to Display Coagulation Panel: No Data to Display Cardiac Panel: No Data to Display Arterial Blood Gas: No Data to Display Venous Blood Gas: No Data to Display Pancreas Panel: No Data to Display Thyroid Panel: No Data to Display Infectious Disease: No Data to Display Blood Cultures: No Data to Display Toxicology Panel: No Data to Display Anesthesia Assessment and Plan Anesthesia History Personal History: No History of Anesthesia Complications Family History: No Family History of Anesthesia Complications Exercise Tolerance Exercise Tolerance: Metabolic Equivalents>4 Pertinent Negatives Pertinent Negatives: No Symptoms of GERD Cardiac & Pulmonary Exam Cardiac Exam: Normal S1/S2 Heart Sounds Pulmonary Exam: Clear Bilateral Breath Sounds Implantable Cardiac Device Does patient have a Pacemaker or an ICD?: No Airway Exam Known Difficult Airway: No Mallampati Class: 2 Mouth Opening: Normal (> 3cm) Thyromental Distance: Greater than 3 cm Neck Range of Motion: Full ROM Neck Circumference: Normal Teeth Condition: Normal Dentition ASA Classification ASA Score: ASA 2 Emergency Case?: No NPO Status NPO Status: NPO Clears >2 hours, Solids >8 hours Anesthesia Plan Resuscitation Status: Full Code Anesthesia Technique: General Anesthesia Airway Planned: LMA Monitors Used: Standard Monitors
[2022-07-21 12:04] VITALS: BMI 21.4
[2022-07-21] MEDS: Bupivacaine 0.5% Pres-Free 30 ML VIAL (13:07)
[2022-07-21 13:17] VITALS: BP 163/101; PULSE 73; RESP 16; TEMP 36.7; O2SAT 99
[2022-07-21 13:22] VITALS: BP 121/76; PULSE 66; RESP 14; TEMP 36.7; O2SAT 98
--- NOTE | 2022-07-21 13:25 | ROE_ITS ---
Date of service: 07/21/22 Time of Service: 13:15 Operative Note Operative Note DATE OF PROCEDURE: 07/21/22 PRE-OP DIAGNOSIS: Right Knee Arthrofibrosis POST-OP DIAGNOSIS: same PROCEDURE: Manipulation Under Anesthesia - Right Knee SURGEON: Remy Boland ANESTHESIA TYPE: General LMA/ETT Refer to Anesthesia Record ESTIMATED BLOOD LOSS: 0 PATHOLOGY: none sent TOURNIQUET TIME: 0 COMPLICATIONS: None Patient was transported to: PACU Patient's condition: stable Indications: Miri is a 71 year old female who is s/p knee replacement. Despite diligent work with physical therapy there has been continued stiffness. To assist with mobility, I offered a manipulation under anesthesia. I discussed the risks of the procedure to include bleeding, pain, recurrent stiffness, fracture. Despite these risks, she elects to proceed. Findings: Preoperative flexion = 95 Postoperative flexion = 125 Preoperative extension = 10 Postoperative extension = 5 Procedure Description: The patient is agreed in the preoperative holding area. Identity was confirmed and the correct side was identified and marked. The consent was reviewed the patient and signed. History and physical was updated. Miri was taken back to the operating room. The right side was identified as the correct side. A timeout was performed for safe surgery. A general anesthetic was administered. The knee was then prepped with ChloraPrep and an intra-articular injection of 10 cc of 0.5% bupivacaine was administered. Once a muscle relaxant was fully on board manipulation was performed. Pre- manipulation range of motion was noted. A gentle manipulation was performed first into flexion using a very small lever arm and adding gentle and progressive pressure to the tibia. There is audible and palpable crepitus with improvement in range of motion. This was cycled and repeated multiple times. The leg was then brought into extension and gentle anterior posterior pressure was applied with a supported hand behind the proximal tibia and knee. This was brought back into flexion was once again manipulated with gentle and progressive pressure. Final range of motion numbers were recorded, 5-125. A Band-Aid was applied to the injection site. She was awakened from anesthesia and taken to the PACU in stable condition.
[2022-07-21 13:30] VITALS: BP 186/68; PULSE 66; RESP 16; TEMP 36.4; O2SAT 98
[2022-07-21] MEDS: Acetaminophen 325 MG TAB 650 MG PO (13:51)
[2022-07-21 13:59] VITALS: BP 186/71; PULSE 63; RESP 16; TEMP 36.3; O2SAT 100
--- NOTE | 2022-07-21 14:01 | W.ANESPOSTOP ---
Postoperative Evaluation Date, Time and Location Date Performed: 07/21/22 Time Performed: 13:55 Patient Location: Day Surgery Unit Vital Signs Most Recent Imported Vital Signs: Most Recent Vital Signs Temp Pulse Resp BP Pulse Ox 36.4 C L 66 16 186/68 H 98 07/21/22 13:30 07/21/22 13:30 07/21/22 13:30 07/21/22 13:30 07/21/22 13:30 Pain Score Most Recent Pain Score: Most Recent Pain Score Pain Level 4 07/21/22 13:30 Assessment Mental Status: Awake (Alert & Oriented to Patient Baseline) Airway and Respiratory Function: Patent airway with normal (patient baseline) respiratory exam Cardiovascular Function: Hemodynamically Stable Hydration Status: Adequately Hydrated Nausea & Vomiting: No Nausea or Vomiting Pain: Pt. Denies Any Pain Peripheral Nerve Block: Patient did not receive a nerve block Teaching Patient Teaching: Advised to seek followup for the following concerns (See explanation) Concerns: Poorly Controlled Hypertension
[2022-07-21 14:30] VITALS: BP 159/89; PULSE 72; RESP 16; TEMP 36.4; O2SAT 99
== END 2022-07-21 14:38 | disposition home or self-care (01) ==
PROVIDERS: PCP Nurse Practitioner Family; Visit Provider Student in an Organized Health Care Education/Training Program
PROC: (CPT 27570; principal; 2022-07-21 13:00)
DX: T84.82XA Fibrosis due to internal orthopedic prosthetic devices, implants and grafts, initial encounter (principal); Z96.651 Presence of right artificial knee joint
CPT/HCPCS: 27570; J2405; J2704

== ENCOUNTER → 2022-08-05 11:06 | Outpatient (BNVA) | payer MEDICARE, SELFPAY | PROVIDERS: PCP Nurse Practitioner Family; Referring Provider Nurse Practitioner Family; Visit Provider Physician Assistant | DX: T84.82XA Fibrosis due to internal orthopedic prosthetic devices, implants and grafts, initial encounter (principal); Z96.651 Presence of right artificial knee joint ==

== ENCOUNTER → 2022-09-06 10:06 | Outpatient (BNVA) | payer MEDICARE, SELFPAY | PROVIDERS: PCP Nurse Practitioner Family; Referring Provider Nurse Practitioner Family; Visit Provider Student in an Organized Health Care Education/Training Program | DX: Z47.1 Aftercare following joint replacement surgery (principal); Z96.651 Presence of right artificial knee joint; T84.82XA Fibrosis due to internal orthopedic prosthetic devices, implants and grafts, initial encounter ==

== ENCOUNTER 2023-05-09 14:34 | Outpatient (CLI) | payer MEDICARE, SELFPAY ==
--- NOTE | 2023-05-09 09:45 | DI.RAD_ITS ---
Exam(s) XR KNEE RT 2V AP,LAT EXAM: XR KNEE RT 2V AP,LAT CLINICAL HISTORY: F/U RIGHT TKR. TECHNIQUE: 2D digital imaging was performed. Two images were obtained. AP and lateral views were ob tained. COMPARISON: CR XR KNEE RT 1V from 05/20/2022 CR XR STANDING ALIGNMENT from 05/20/2022 FINDINGS: BONES: There are stable post operative changes right total knee replacement present. No fracture or dislocation. JOINTS: The orthopedic hardware is in good position. No evidence of hardware loosening. Small joint effusion. SOFT TISSUE: Normal. IMPRESSION: Stable postoperative changes. DATA REPOSITORY: RADIATION DOSE DELIVERED:
== END 2023-05-09 14:35 | disposition home or self-care (01) ==
LOC: DIORS 14:35
PROVIDERS: PCP Nurse Practitioner Family; Visit Provider Student in an Organized Health Care Education/Training Program
DX: Z96.651 Presence of right artificial knee joint (principal); Z47.1 Aftercare following joint replacement surgery; T84.82XA Fibrosis due to internal orthopedic prosthetic devices, implants and grafts, initial encounter
CPT/HCPCS: 99213; 73560

== ENCOUNTER → 2023-05-23 13:52 | Outpatient (BNVA) | payer MEDICARE, SELFPAY | PROVIDERS: PCP Nurse Practitioner Family; Referring Provider Nurse Practitioner Family; Visit Provider Podiatrist | DX: B07.9 Viral wart, unspecified (principal); L97.511 Non-pressure chronic ulcer of other part of right foot limited to breakdown of skin | CPT/HCPCS: 17110; 99213 ==

== ENCOUNTER → 2023-06-15 11:05 | Outpatient (BNVA) | payer MEDICARE, SELFPAY | PROVIDERS: PCP Nurse Practitioner Family; Referring Provider Nurse Practitioner Family; Visit Provider Podiatrist | DX: M79.671 Pain in right foot (principal); B07.0 Plantar wart; Z98.890 Other specified postprocedural states | CPT/HCPCS: 17110; 99213 ==

== ENCOUNTER 2024-05-03 01:39 | Outpatient (CLI) | payer MEDICARE, SELFPAY ==
--- NOTE | 2024-05-03 07:15 | DI.MAMMO_ITS ---
Exam(s) MAMMO SCREENING EXAM: MAMMO SCREENING CLINICAL HISTORY: screening,z12.39 TECHNIQUE: Mammograms were interpreted according to the usual protocol including computer analysis w [employer] CAD system, tomosynthesis and C-view imaging. COMPARISON: 2015 through 2021 FINDINGS: The breasts are composed of heterogeneously dense fibroglandular densities, Breast Density category C . No suspicious masses or suspicious microcalcifications are seen. No skin thickening or abnormal axillary lymph nodes are seen. There has been no significant change from prior exams. IMPRESSION: BI-RADS Category 1, Negative mammogram. Yearly screening mammography is recommended. Breast Density Category C, heterogeneously Dense. The mammogram demonstrates the patient's breast tissue is dense. Dense breast tissue is very common a nd is not abnormal but dense breast tissue can make it harder to find cancer on a mammogram. Also, de nse breast tissue may increase breast cancer risk. This information about the result of the mammogram report was provided to the patient to raise their awareness. Use this report when you speak with the patient about their risks for breast cancer, which includes their family history. At that time, you may recommend additional screening tests (Ultrasound or MRI) as they might be useful based on their r isk. A negative radiographic report should not delay biopsy if a dominant or clinically suspicious mass is present. Up to ten percent of cancers are not identified on mammography. A negative report may reinforce clinical impression. Adenosis and dense breasts may obscure an underlying neoplasm. False positive reports average 6 to 10%.
== END 2024-05-03 01:59 ==
PROVIDERS: PCP Nurse Practitioner Family; Visit Provider Nurse Practitioner Family
DX: Z12.31 Encounter for screening mammogram for malignant neoplasm of breast (principal)
CPT/HCPCS: 77063; 77067

== ENCOUNTER 2024-05-10 15:19 | Outpatient (CLI) | payer MEDICARE, SELFPAY ==
--- NOTE | 2024-05-10 10:30 | DI.RAD_ITS ---
Exam(s) XR KNEE RT 2V AP,LAT EXAM: XR KNEE RT 2V AP,LAT CLINICAL HISTORY: ANNUAL F/U R TKA. TECHNIQUE: 2D digital imaging was performed. Two images were obtained. AP and lateral views were ob tained. COMPARISON: CR XR KNEE RT 2V AP,LAT from 05/09/2023 FINDINGS: BONES: There are stable post operative changes of a right total knee arthroplasty present. No fractu re or dislocation. JOINTS: The orthopedic hardware is in good position. There is no change in appearance of the orthope dic hardware or the surrounding bone. There is a small joint effusion. SOFT TISSUE: Normal. IMPRESSION: Stable right total knee arthroplasty. DATA REPOSITORY: RADIATION DOSE DELIVERED:
== END 2024-05-10 15:20 | disposition home or self-care (01) ==
LOC: DIORS 15:19
PROVIDERS: PCP Nurse Practitioner Family; Visit Provider Student in an Organized Health Care Education/Training Program
DX: Z47.1 Aftercare following joint replacement surgery (principal); Z96.651 Presence of right artificial knee joint
CPT/HCPCS: 99213; 73560

== ENCOUNTER 2025-04-15 15:02 | Outpatient (REF) | payer MEDICARE, SELFPAY ==
[2025-04-15 17:53] LABS: COMMENT (LAB VIEW ONLY) 100.44 mg/dL
== END 2025-04-15 15:03 | disposition home or self-care (01) ==
LOC: NCHCN 15:02
PROVIDERS: PCP Nurse Practitioner Family; Visit Provider Nurse Practitioner Family
DX: I10 Essential (primary) hypertension (principal)
CPT/HCPCS: 82043; 82570

== ENCOUNTER 2025-04-22 03:53 | Outpatient (CLI) | payer MEDICARE, SELFPAY ==
[2025-04-22 14:57] LABS: ALT 20 U/L (14-59); AST 16 U/L (15-37); Albumin 3.4 g/dL (3.4-5.0); Alkaline Phosphatase 119 U/L (46-116); Anion Gap 6.9 mmol/L (3-11); BUN 15 mg/dL (7-18); Bilirubin, Total 0.4 mg/dL (0.2-1.0); CO2 31.1 mmol/L (21.0-32.0); Calcium 9.1 mg/dL (8.5-10.1); Chloride 104 mmol/L (98-107); Cholesterol 266 mg/dL (<200); Estimated GFR 98.36 (mL/min/1.73m2); Glucose 90 mg/dL (74-106); HDL Cholesterol 92 mg/dL (>or=50); Potassium 4.8 mmol/L (3.5-5.1); Sodium 142 mmol/L (136-145); Total Protein 7.3 g/dL (6.4-8.2)
[2025-04-22 14:58] LABS: Triglyceride <25 mg/dL (<150)
[2025-04-22 15:15] LABS: LDL CHOLESTEROL 161 mg/dL (<100)
== END 2025-04-22 03:54 | disposition home or self-care (01) ==
LOC: LOS 03:54
PROVIDERS: PCP Nurse Practitioner Family; Visit Provider Nurse Practitioner Family
DX: E78.5 Hyperlipidemia, unspecified (principal)
CPT/HCPCS: 36415; 80053; 80061; 83721

== ENCOUNTER 2025-06-17 18:28 | Outpatient (REF) | payer MEDICARE, SELFPAY ==
[2025-06-17 19:00] LABS: ALT 14 U/L (10-49); AST 17 U/L (<34); Albumin 4.0 g/dL (3.2-5.0); Alkaline Phosphatase 117 U/L (46-116); Anion Gap 8.7 mmol/L (3-11); BUN 16 mg/dL (9-23); Bilirubin, Total 0.5 mg/dL (0.2-1.2); CO2 29.3 mmol/L (20.0-31.0); Calcium 9.3 mg/dL (8.3-10.6); Chloride 109 mmol/L (98-107); Cholesterol 255 mg/dL (<200); Glucose 85 mg/dL (74-106); HDL Cholesterol 80 mg/dL (>40); Potassium 4.9 mmol/L (3.5-5.1); Sodium 147 mmol/L (136-145); Total Protein 6.9 g/dL (5.7-8.2)
== END 2025-06-17 18:29 | disposition home or self-care (01) ==
LOC: LBN 18:28
PROVIDERS: PCP Nurse Practitioner Family; Visit Provider Nurse Practitioner Family
DX: E78.5 Hyperlipidemia, unspecified (principal)
CPT/HCPCS: 80053; 80061